=== PATIENT | female | born 1965 | race Caucasian/White ===

== ENCOUNTER 2016-09-08 18:51 | Emergency (ER) | payer OTHER ==
[~2016-09-08] VITALS: Ht 165.1 cm; Wt 76.9 kg
[~2016-09-08 18:51] MED LIST: ALLEGRA ALLERG180 MG PO; BUTALB-APAP-CA1 EACH PO; COMPAZINE5 MG PO; CYCLOBENZAPRINE10 MG PO; DESYREL100 MG PO; DULOXETINE HCL20 MG PO; DYMISTA NASAL S23 GM BOTH NARES; ESOMEPRAZOLE MA40 MG PO; KLONOPIN0.5 M1 PO; LEVAQUIN750 MG PO; MACROBID100 MG PO; MECLIZINE HCL12.5 M1 PO; MELOXICAM15 MG PO; MONTELUKAST SOD10 MG PO; MULTIPLE VITAM1 EACH PO; NASONEX17 GM BOTH NARES; OLEPTRO ER300 MG PO; PROAIR HFA8.5 GM IH; PROTONIX40 MG PO; PYRIDIUM100 MG PO; RANITIDINE HCL300 M1 PO; TOPAMAX100 MG PO; TRAMADOL HCL50 MG PO; TROKENDI XR200 MG PO; ZOFRAN8 MG PO
[2016-09-08 21:29] VITALS: BP 117/75
== END 2016-09-08 21:32 | disposition home or self-care (01) ==
LOC: EME 18:51
DX: G43.909 Migraine, unspecified, not intractable, without status migrainosus (principal); K21.9 Gastro-esophageal reflux disease without esophagitis; Z87.442 Personal history of urinary calculi; Z87.891 Personal history of nicotine dependence
CPT/HCPCS: 99281; 99284; J1100; J1885

== ENCOUNTER 2016-09-21 12:29 | Emergency (ER) | payer OTHER ==
[~2016-09-21] VITALS: Ht 165.1 cm; Wt 76.7 kg
[2016-09-21 13:50] LABS: ADD MIUA? NO; BILIRUBIN NEGATIVE; BLOOD NEGATIVE; COLOR YELLOW ((YELLOW)); GLUCOSE (STRIP) NEGATIVE; KETONES NEGATIVE; LEUKOCYTES NEGATIVE; NITRITE NEGATIVE; PROTEIN (STRIP) TRACE; SPECIFIC GRAVITY 1.025 (1.000-1.030); UCUL ADDED? NO; UROBILINOGEN 0.2 MG/DL (0.2-1.0)
[2016-09-21 13:51] LABS: HEMATOCRIT 42.8 % (36.0-46.0); MCH 29.3 PG (29.0-34.0); MCHC 34.1 G/DL (30.0-36.0); MEAN PLAT.VOLUME 10.3 uM^3 (9.5-12.4); PLATELET COUNT 174 K/uL (156-360); RBC DIS.WIDTH-SD 40.3 % (39-53); RED BLOOD COUNT 4.98 M/uL (3.80-5.20)
[2016-09-21 13:53] LABS: MCV 85.9 FL (83-99); WHITE BLOOD COUNT 16.4 K/uL (4.1-10.2)
[2016-09-21 14:00] LABS: CHLORIDE 112 mEq/L (99-109); POTASSIUM 3.9 mEq/L (3.7-5.4); SODIUM 140 mEq/L (136-147)
[2016-09-21 14:02] LABS: GLUCOSE 103 mg/dL (70-99)
[2016-09-21 14:03] LABS: ANION GAP 10 MEQ/L (2-14)
[2016-09-21 14:04] LABS: TOTAL BILIRUBIN 0.6 mg/dL (0.0-1.0)
[2016-09-21 14:05] LABS: ALKALINE PHOSPHATASE 114 IU/L (3-129)
[2016-09-21 14:06] LABS: GFR ESTIMATE (CALCULATED) > 59 mL/min/
[2016-09-21 14:07] LABS: UREA NITROGEN (BUN) 25 mg/dL (9-23)
[2016-09-21] MEDS ORDERED: TRAMADOL HCL50 MG PO (18:18)
[2016-09-21] MEDS ORDERED: ZOFRAN ODT4 MG PO (18:18)
[2016-09-21 18:47] VITALS: BP 108/82
== END 2016-09-21 19:34 | disposition home or self-care (01) ==
LOC: EME 12:29
PROVIDERS: Nurse Practitioner Family
DX: N12 Tubulo-interstitial nephritis, not specified as acute or chronic (principal); Z87.440 Personal history of urinary (tract) infections; Z87.442 Personal history of urinary calculi; Z87.891 Personal history of nicotine dependence; K21.9 Gastro-esophageal reflux disease without esophagitis
CPT/HCPCS: 76770; 80053; 81003; 85027; 87040; 99281; 99284; J1580; J1885; J2405; J7030; J7050

== ENCOUNTER 2016-09-26 22:23 | Emergency (ER) | payer OTHER ==
[~2016-09-26] VITALS: Ht 165.1 cm; Wt 77.2 kg
[~2016-09-26 22:23] MED LIST changes: +ZOFRAN ODT4 MG PO
[2016-09-26 22:25] VITALS: BP 133/79
[2016-09-26 23:04] LABS: HEMATOCRIT 44.7 % (36.0-46.0); MCH 29.2 PG (29.0-34.0); MCHC 34.5 G/DL (30.0-36.0); MCV 84.8 FL (83-99); PLATELET COUNT 214 K/uL (156-360); RBC DIS.WIDTH-CV 12.9 % (11.8-14.6); RBC DIS.WIDTH-SD 39.6 % (39-53); RED BLOOD COUNT 5.27 M/uL (3.80-5.20); WHITE BLOOD COUNT 15.6 K/uL (4.1-10.2)
[2016-09-26 23:06] LABS: BASOPHIL COUNT 0.1 K/uL (0-0.1); EOSINOPHIL (%) 11.6 % (0-5); EOSINOPHIL COUNT 1.8 K/uL (0-0.3); IMMATURE GRANULOCYTE (%) 0.6 % (0.0-0.7); LYMPHOCYTE COUNT 1.6 K/uL (1.0-2.8); MONOCYTE (%) 4.2 % (3-12); MONOCYTE COUNT 0.7 K/uL (0-0.8); NEUTROPHIL (%) 73.4 % (45-76); NEUTROPHIL COUNT 11.5 K/uL (1.8-6.4)
[2016-09-26 23:14] LABS: CHLORIDE 104 mEq/L (99-109); POTASSIUM 3.4 mEq/L (3.7-5.4); SODIUM 135 mEq/L (136-147)
[2016-09-26 23:16] LABS: GLUCOSE 112 mg/dL (70-99)
[2016-09-26 23:18] LABS: ANION GAP 12 MEQ/L (2-14)
[2016-09-26 23:20] LABS: GFR ESTIMATE (CALCULATED) > 59 mL/min/
[2016-09-26 23:21] LABS: UREA NITROGEN (BUN) 11 mg/dL (9-23)
[2016-09-26 23:41] LABS: BILIRUBIN NEGATIVE; BLOOD NEGATIVE; COLOR YELLOW ((YELLOW)); GLUCOSE (STRIP) NEGATIVE; KETONES NEGATIVE; LEUKOCYTES NEGATIVE; NITRITE NEGATIVE; PROTEIN (STRIP) NEGATIVE; SPECIFIC GRAVITY 1.013 (1.000-1.030); UROBILINOGEN 0.2 MG/DL (0.2-1.0)
[2016-09-26 23:42] LABS: ADD MIUA? NO; UCUL ADDED? NO
[2016-09-27 01:17] LABS: PROTHROMBIN TIME 10.2 (9.2-11.2); PTT 33.1 (25-32)
[2016-09-27 01:18] LABS: TOTAL BILIRUBIN 0.5 mg/dL (0.0-1.0)
[2016-09-27 01:20] LABS: ALKALINE PHOSPHATASE 119 IU/L (3-129)
[2016-09-27 01:22] LABS: DIRECT BILIRUBIN 0.2 mg/dL (0.0-0.3)
[2016-09-27 01:23] LABS: LIPASE 12 U/L (1.0-51.0)
== END 2016-09-27 04:00 | disposition left against medical advice (07) ==
LOC: EME 22:23
DX: R50.9 Fever, unspecified (principal); R51 Headache; M79.1 Myalgia; Z53.21 Procedure and treatment not carried out due to patient leaving prior to being seen by health care provider
CPT/HCPCS: 80048; 80076; 81003; 83605; 83690; 85025 91; 85610; 85730; 87040; 87502

== ENCOUNTER 2016-09-29 19:38 | Inpatient (IN) | payer OTHER ==
[~2016-09-29] VITALS: Ht 165.1 cm; Wt 62.7 kg
[2016-09-29 20:33] LABS: HEMATOCRIT 41.1 % (36.0-46.0); MCH 29.6 PG (29.0-34.0); MCHC 34.5 G/DL (30.0-36.0); MCV 85.6 FL (83-99); MEAN PLAT.VOLUME 9.9 uM^3 (9.5-12.4); PLATELET COUNT 204 K/uL (156-360); RBC DIS.WIDTH-CV 12.8 % (11.8-14.6); RBC DIS.WIDTH-SD 39.4 % (39-53); WHITE BLOOD COUNT 13.7 K/uL (4.1-10.2)
[2016-09-29 20:41] LABS: CHLORIDE 111 mEq/L (99-109); POTASSIUM 3.7 mEq/L (3.7-5.4)
[2016-09-29 20:44] LABS: GLUCOSE 88 mg/dL (70-99)
[2016-09-29 20:45] LABS: ANION GAP 12 MEQ/L (2-14)
[2016-09-29 20:46] LABS: SODIUM 142 mEq/L (136-147); TOTAL BILIRUBIN 0.1 mg/dL (0.0-1.0)
[2016-09-29 20:47] LABS: ALKALINE PHOSPHATASE 139 IU/L (3-129)
[2016-09-29 20:48] LABS: GFR ESTIMATE (CALCULATED) 42 mL/min/
[2016-09-29 20:49] LABS: UREA NITROGEN (BUN) 12 mg/dL (9-23)
[2016-09-29 20:56] LABS: TROP-I INTERPRETATION POSITIVE
[2016-09-29 20:58] LABS: TROPONIN-I 1.19 ng/mL (0.0-0.30)
[2016-09-29 21:38] LABS: PROTHROMBIN TIME 10.1 (9.2-11.2); PTT 31.7 (25-32)
[2016-09-29] MEDS ORDERED: GENTAMICIN (22:36)
[2016-09-29] MEDS ORDERED: BOTOX100 UNITS IJ (22:37)
[2016-09-29] MEDS ORDERED: ADVAIR 250/501 DISK IH (22:39)
[2016-09-29] MEDS ORDERED: PROAIR HFA8.5 GM IH (22:40)
[2016-09-29] MEDS ORDERED: OMEPRAZOLE40 M1 PO (22:42)
[2016-09-29 23:26] VITALS: BP 129/69
[2016-09-30 00:15] VITALS: BP 106/62
[2016-09-30 02:28] LABS: TROP-I INTERPRETATION POSITIVE
[2016-09-30 02:30] LABS: TROPONIN-I 3.56 ng/mL (0.0-0.30)
[2016-09-30 03:57] VITALS: BP 108/70
[2016-09-30 04:45] LABS: UR CREATININE CONCENTRATION 59.1 MG/DL
[2016-09-30 05:28] LABS: HEMATOCRIT 37.6 % (36.0-46.0); MCH 29.8 PG (29.0-34.0); MCHC 33.8 G/DL (30.0-36.0); MCV 88.3 FL (83-99); MEAN PLAT.VOLUME 10.3 uM^3 (9.5-12.4); PLATELET COUNT 183 K/uL (156-360); RBC DIS.WIDTH-CV 12.9 % (11.8-14.6); RBC DIS.WIDTH-SD 41.4 % (39-53); RED BLOOD COUNT 4.26 M/uL (3.80-5.20); WHITE BLOOD COUNT 11.5 K/uL (4.1-10.2)
[2016-09-30 06:24] LABS: ANION GAP 8 MEQ/L (2-14); CHLORIDE 112 MEQ/L (99-109); GFR ESTIMATE (CALCULATED) > 59 mL/min/; GLUCOSE 101 mg/dL (70-99); HDL CHOLESTEROL 21 MG/DL (Desirable>=50); LDL CHOLESTEROL 73 mg/dL (Desirable<100); NON-HDL CHOLESTEROL 132 mg/dL (Desirable<160); POTASSIUM 3.6 MEQ/L (3.7-5.4); SAMPLE HEMOLYSIS CHECK 0; SAMPLE ICTERIC CHECK 0; SAMPLE LIPEMIA CHECK 1; SODIUM 141 MEQ/L (136-147); TOTAL CHOLESTEROL 153 mg/dL (Desirable<200); TRIGLYCERIDES 295 MG/DL (Normal: <150); UREA NITROGEN (BUN) 13 mg/dL (9-23)
[2016-09-30 07:33] VITALS: BP 112/65
[2016-09-30 09:43] LABS: TROP-I INTERPRETATION POSITIVE
[2016-09-30 11:28] VITALS: BP 105/67
[2016-09-30 15:31] VITALS: BP 111/65
[2016-09-30 19:32] VITALS: BP 111/59
[2016-10-01] VITALS (8 sets, daily range): BP systolic 93–118; BP diastolic 51–71
[2016-10-01 03:19] LABS: HEMATOCRIT 38.7 % (36.0-46.0); MCH 28.8 PG (29.0-34.0); MCHC 33.1 G/DL (30.0-36.0); MEAN PLAT.VOLUME 9.7 uM^3 (9.5-12.4); PLATELET COUNT 195 K/uL (156-360); RBC DIS.WIDTH-CV 12.8 % (11.8-14.6); RBC DIS.WIDTH-SD 39.3 % (39-53); RED BLOOD COUNT 4.45 M/uL (3.80-5.20)
[2016-10-01 03:35] LABS: CHLORIDE 114 mEq/L (99-109); POTASSIUM 4.1 mEq/L (3.7-5.4); SODIUM 140 mEq/L (136-147)
[2016-10-01 03:37] LABS: GLUCOSE 96 mg/dL (70-99)
[2016-10-01 03:38] LABS: ANION GAP 8 MEQ/L (2-14)
[2016-10-01 03:41] LABS: GFR ESTIMATE (CALCULATED) > 59 mL/min/
[2016-10-01 03:42] LABS: UREA NITROGEN (BUN) 14 mg/dL (9-23)
[2016-10-01 04:39] LABS: HEMATOLOGY COMMENT 1 REV
[2016-10-01 04:40] LABS: BASOPHIL COUNT 0.1 K/uL (0-0.1); EOSINOPHIL (%) 36.9 % (0-5); EOSINOPHIL COUNT 4.4 K/uL (0-0.3); IMMATURE GRANULOCYTE (%) 1.7 % (0.0-0.7); LYMPHOCYTE COUNT 3.8 K/uL (1.0-2.8); MONOCYTE (%) 4.7 % (3-12); MONOCYTE COUNT 0.6 K/uL (0-0.8); NEUTROPHIL COUNT 2.9 K/uL (1.8-6.4)
[2016-10-02 03:13] VITALS: BP 103/59
[2016-10-02 06:50] LABS: MCHC 31.7 G/DL (30.0-36.0); MCV 88.4 FL (83-99); MEAN PLAT.VOLUME 9.7 uM^3 (9.5-12.4); PLATELET COUNT 170 K/uL (156-360); RBC DIS.WIDTH-CV 13.1 % (11.8-14.6); RBC DIS.WIDTH-SD 41.8 % (39-53); RED BLOOD COUNT 4.64 M/uL (3.80-5.20); WHITE BLOOD COUNT 10.6 K/uL (4.1-10.2)
[2016-10-02 07:17] LABS: ANION GAP 8 MEQ/L (2-14); CHLORIDE 109 MEQ/L (99-109); GFR ESTIMATE (CALCULATED) > 59 mL/min/; GLUCOSE 88 mg/dL (70-99); POTASSIUM 4.1 MEQ/L (3.7-5.4); SAMPLE HEMOLYSIS CHECK 0; SAMPLE ICTERIC CHECK 0; SAMPLE LIPEMIA CHECK 0; SODIUM 137 MEQ/L (136-147); UREA NITROGEN (BUN) 15 mg/dL (9-23)
[2016-10-02 07:57] VITALS: BP 102/55
[2016-10-02 08:47] LABS: CARBON DIOXIDE (BICARBONATE) 21.9 MEQ/L (20-31)
[2016-10-02 11:45] VITALS: BP 108/64
[2016-10-02 16:31] VITALS: BP 111/63
[2016-10-02 20:00] VITALS: BP 124/61
[2016-10-02 23:45] VITALS: BP 100/56
[2016-10-03 03:40] VITALS: BP 92/54
[2016-10-03 05:58] LABS: HEMATOCRIT 43.2 % (36.0-46.0); MCHC 31.9 G/DL (30.0-36.0); MCV 87.6 FL (83-99); MEAN PLAT.VOLUME 10.2 uM^3 (9.5-12.4); PLATELET COUNT 173 K/uL (156-360); RBC DIS.WIDTH-CV 12.8 % (11.8-14.6); RBC DIS.WIDTH-SD 41.1 % (39-53); RED BLOOD COUNT 4.93 M/uL (3.80-5.20); WHITE BLOOD COUNT 10.5 K/uL (4.1-10.2)
[2016-10-03 06:24] LABS: ANION GAP 11 MEQ/L (2-14); CHLORIDE 109 MEQ/L (99-109); POTASSIUM 4.1 MEQ/L (3.7-5.4); SAMPLE HEMOLYSIS CHECK 0; SAMPLE ICTERIC CHECK 0; SAMPLE LIPEMIA CHECK 0; SODIUM 140 MEQ/L (136-147)
[2016-10-03 06:30] LABS: GFR ESTIMATE (CALCULATED) > 59 mL/min/; GLUCOSE 100 mg/dL (70-99); UREA NITROGEN (BUN) 17 mg/dL (9-23)
[2016-10-03 06:42] LABS: BASOPHIL COUNT 0.1 K/uL (0-0.1); EOSINOPHIL (%) 17.1 % (0-5); EOSINOPHIL COUNT 1.8 K/uL (0-0.3); IMMATURE GRANULOCYTE (%) 1.4 % (0.0-0.7); IMMATURE GRANULOCYTE COUNT 0.2 K/uL; LYMPHOCYTE COUNT 3.7 K/uL (1.0-2.8); MONOCYTE COUNT 0.5 K/uL (0-0.8); NEUTROPHIL (%) 40.2 % (45-76); NEUTROPHIL COUNT 4.2 K/uL (1.8-6.4)
[2016-10-03 07:39] VITALS: BP 102/53
[2016-10-03 11:30] VITALS: BP 111/71
[2016-10-03] MEDS ORDERED: ATORVASTATIN CA40 MG PO (13:50)
[2016-10-03] MEDS ORDERED: ASPIR-LOW81 MG PO (13:51)
[2016-10-03] MEDS ORDERED: LOPRESSOR25 MG PO (13:51)
[2016-10-03] MEDS ORDERED: NITROSTAT0.4 MG SL (13:51)
== END 2016-10-03 14:51 | disposition home or self-care (01) | DRG 280 ==
LOC: EME 19:38 → EDOF 22:27 → 4EAST 22:27
PROVIDERS: Family Medicine; Hospitalist; Internal Medicine; Physician Assistant
DX: I21.4 Non-ST elevation (NSTEMI) myocardial infarction (principal); A41.9 Sepsis, unspecified organism; R65.11 Systemic inflammatory response syndrome (SIRS) of non-infectious origin with acute organ dysfunction; N17.9 Acute kidney failure, unspecified; F33.9 Major depressive disorder, recurrent, unspecified; J98.11 Atelectasis; E87.2 Acidosis; K21.9 Gastro-esophageal reflux disease without esophagitis; F41.9 Anxiety disorder, unspecified; I10 Essential (primary) hypertension; G43.109 Migraine with aura, not intractable, without status migrainosus; N20.0 Calculus of kidney; J45.20 Mild intermittent asthma, uncomplicated; E78.5 Hyperlipidemia, unspecified; J06.9 Acute upper respiratory infection, unspecified; I24.8 Other forms of acute ischemic heart disease; K44.9 Diaphragmatic hernia without obstruction or gangrene; Z16.23 Resistance to quinolones and fluoroquinolones; E66.3 Overweight; Z88.5 Allergy status to narcotic agent; Z87.440 Personal history of urinary (tract) infections; Z87.891 Personal history of nicotine dependence; Z82.3 Family history of stroke; Z83.2 Family history of diseases of the blood and blood-forming organs and certain disorders involving the immune mechanism
CPT/HCPCS: 36415; 71020; 80048; 80053; 80061; 82306 GA; 82436; 82570; 82803; 84133; 84300; 84443; 84484; 85025; 85027; 85610; 85730; 86038; 86147 90; 87040; 87086 GA; 93005; 93306; 94640; 94640 76; 94760; 94799; 99202; 99281; 99284; 99285; C1769; C1887; J1200; J1644; J1956; J2250; J3010; J7030; J7040

== ENCOUNTER 2017-03-16 15:44 | Emergency (ER) | payer OTHER ==
[~2017-03-16] VITALS: Ht 165.1 cm; Wt 83.8 kg
[~2017-03-16 15:44] MED LIST changes: +ADVAIR 250/501 DISK IH; +ASPIR-LOW81 MG PO; +ATORVASTATIN CA40 MG PO; +BOTOX100 UNITS IJ; +GENTAMICIN; +LOPRESSOR25 MG PO; +NITROSTAT0.4 MG SL; +OMEPRAZOLE40 M1 PO
[2017-03-16] MEDS ORDERED: NAPHCON-A EYE D15 ML BOTH EYES (17:07)
[2017-03-16 17:24] VITALS: BP 156/119
== END 2017-03-16 17:25 | disposition home or self-care (01) ==
LOC: EME 15:44
DX: S05.02XA Injury of conjunctiva and corneal abrasion without foreign body, left eye, initial encounter (principal); S05.01XA Injury of conjunctiva and corneal abrasion without foreign body, right eye, initial encounter; X58.XXXA Exposure to other specified factors, initial encounter; H10.13 Acute atopic conjunctivitis, bilateral; K21.9 Gastro-esophageal reflux disease without esophagitis; G43.909 Migraine, unspecified, not intractable, without status migrainosus; I25.2 Old myocardial infarction; F32.9 Major depressive disorder, single episode, unspecified; Z87.891 Personal history of nicotine dependence
CPT/HCPCS: 99281; 99284

== ENCOUNTER 2017-04-24 17:55 | Emergency (ER) | payer OTHER ==
[~2017-04-24] VITALS: Ht 165.1 cm; Wt 84.1 kg
[~2017-04-24 17:55] MED LIST changes: +NAPHCON-A EYE D15 ML BOTH EYES
[2017-04-24 18:32] LABS: HEMATOCRIT 48.3 % (36.0-46.0); MCH 29.1 PG (29.0-34.0); MCHC 33.5 G/DL (30.0-36.0); MCV 86.9 FL (83-99); MEAN PLAT.VOLUME 10.1 uM^3 (9.5-12.4); PLATELET COUNT 222 K/uL (156-360); RBC DIS.WIDTH-CV 12.6 % (11.8-14.6); RBC DIS.WIDTH-SD 39.9 % (39-53); RED BLOOD COUNT 5.56 M/uL (3.80-5.20); WHITE BLOOD COUNT 12.2 K/uL (4.1-10.2)
[2017-04-24 18:41] LABS: CHLORIDE 105 mEq/L (99-109); POTASSIUM 4.4 mEq/L (3.7-5.4); SODIUM 138 mEq/L (136-147)
[2017-04-24 18:44] LABS: GLUCOSE 111 mg/dL (70-99)
[2017-04-24 18:45] LABS: ANION GAP 13 MEQ/L (2-14); TOTAL BILIRUBIN 0.4 mg/dL (0.0-1.0)
[2017-04-24 18:47] LABS: ALKALINE PHOSPHATASE 172 IU/L (3-129); GFR ESTIMATE (CALCULATED) > 59 mL/min/
[2017-04-24 18:48] LABS: UREA NITROGEN (BUN) 19 mg/dL (9-23)
[2017-04-24 18:51] LABS: LIPASE 27 U/L (1.0-51.0)
[2017-04-24 19:28] LABS: ADD MIUA? NO; BILIRUBIN NEGATIVE; BLOOD NEGATIVE; COLOR YELLOW ((YELLOW)); GLUCOSE (STRIP) NEGATIVE; KETONES NEGATIVE; LEUKOCYTES NEGATIVE; NITRITE NEGATIVE; PROTEIN (STRIP) NEGATIVE; SPECIFIC GRAVITY 1.012 (1.000-1.030); UROBILINOGEN 0.2 MG/DL (0.2-1.0)
[2017-04-24] MEDS ORDERED: ZOFRAN ODT4 MG PO (20:16)
[2017-04-24] MEDS ORDERED: BENTYL10 MG PO (20:16)
[2017-04-24] MEDS ORDERED: ULTRAM50 MG PO (20:20)
[2017-04-24 20:33] VITALS: BP 118/67
== END 2017-04-24 20:37 | disposition home or self-care (01) ==
LOC: EME 17:55
PROVIDERS: Nurse Practitioner Family
DX: K52.9 Noninfective gastroenteritis and colitis, unspecified (principal); Z87.11 Personal history of peptic ulcer disease; Z87.442 Personal history of urinary calculi; Z87.891 Personal history of nicotine dependence; Z91.041 Radiographic dye allergy status; Z88.5 Allergy status to narcotic agent
CPT/HCPCS: 74177; 80053; 81003; 83690; 85027; 99281; 99284; J2405; J3010; J7030

== ENCOUNTER → 2017-05-24 | Outpatient (CLI) | payer OTHER ==
[~2017-05-24] VITALS: Ht 165.1 cm; Wt 81.6 kg
[~2017-05-24] MED LIST changes: +ARTIFICIAL TEAR1510 BOTH EYES; +ASPIR 8181 M1 PO; +BENTYL10 MG PO; +BENTYL20 MG PO; +FIORICET,ESG1 TABLET PO; +FLEXERIL10 MG PO; +LIPITOR40 MG PO; +ULTRAM50 MG PO; +ZANTAC300 MG PO; +ZOFRAN4 MG PO; +ZOLOFT25 MG PO
== END | disposition home or self-care (01) ==
LOC: AMB 14:05
DX: K52.9 Noninfective gastroenteritis and colitis, unspecified (principal); K29.50 Unspecified chronic gastritis without bleeding; K64.8 Other hemorrhoids; K21.9 Gastro-esophageal reflux disease without esophagitis; F41.8 Other specified anxiety disorders; I10 Essential (primary) hypertension; I25.2 Old myocardial infarction; Z79.82 Long term (current) use of aspirin; Z87.891 Personal history of nicotine dependence
CPT/HCPCS: 88305; 88342 TC; J1100; J2250; J2405; J3010

== ENCOUNTER → 2017-08-20 | Outpatient (CLI) | payer OTHER | END | disposition home or self-care (01) | LOC: NUC 08:09 | DX: R11.0 Nausea (principal); K21.9 Gastro-esophageal reflux disease without esophagitis; R13.12 Dysphagia, oropharyngeal phase | CPT/HCPCS: 78264; A9541 ==